=== PATIENT | male | born 1980 | race African-American/Black ===

== ENCOUNTER 2021-07-22 07:27 | Emergency (ER) | payer OTHER ==
[~2021-07-22] VITALS: Ht 193 cm; Wt 82.0 kg
[2021-07-22 07:29] VITALS: BP 146/84
== END 2021-07-22 09:46 ==
LOC: ER 07:34
DX: Z00.00 Encounter for general adult medical examination without abnormal findings (principal); Z94.5 Skin transplant status
CPT/HCPCS: 99283

== ENCOUNTER 2021-07-26 13:39 | Emergency (ER) | payer MEDICAID, OTHER ==
[~2021-07-26] VITALS: Ht 188 cm; Wt 80.0 kg
[2021-07-26 13:59] VITALS: BP 131/70
[2021-07-26] MEDS ORDERED: BACITRACIN ZINC OINT UDPKT TOP ONE (14:15)
== END 2021-07-26 15:30 | disposition home or self-care (01) ==
LOC: ER 13:39
DX: Z48.00 Encounter for change or removal of nonsurgical wound dressing (principal)
CPT/HCPCS: 99283

== ENCOUNTER 2024-01-04 20:38 | Emergency (ER) | payer MEDICAID ==
[~2024-01-04] VITALS: Ht 195.6 cm; Wt 77.7 kg
[2024-01-04 22:03] VITALS: O2SAT 98
[2024-01-05] MEDS: KETOROLAC 30MG/ML VIAL IM ONE (00:59)
[2024-01-05] MEDS ORDERED: IBUP-2030 MT (01:05)
[2024-01-05] MEDS ORDERED: CEPH500C2 MT (01:05)
[2024-01-05 01:27] VITALS: BP 109/66; PULSE 70; RESP 12; TEMP 97.6
== END 2024-01-05 01:28 | disposition home or self-care (01) ==
LOC: ER 20:38
DX: S89.91XA Unspecified injury of right lower leg, initial encounter (principal); L03.115 Cellulitis of right lower limb; Z98.890 Other specified postprocedural states; W18.39XA Other fall on same level, initial encounter; Y93.89 Activity, other specified; Y92.89 Other specified places as the place of occurrence of the external cause; Y99.8 Other external cause status
CPT/HCPCS: 99284; 73560; 73590; 73610; 73630; 96372; J1885